=== PATIENT | female | born 1955 | race Caucasian/White ===

== ENCOUNTER 2017-12-22 09:02 | Day surgery (SDC) | payer BC ==
[~2017-12-22 09:02] MED LIST: Lactated Ringers 1,000 ML IV SCH; Midazolam 1 MG/ML 2 ML SDV ONE; Propofol 200 MG/20 ML SDV ONE; Sodium Chloride 0.9% 10 ML Syringe FLUSH PRN
--- NOTE | 2017-12-22 09:48 | PCM.PN ---
- General Info Date of Service: 12/22/17 - Review of Systems Systems Review Comment:: 62-year-old female with history of colon polyps here for colonoscopy. She is medically stable to proceed today. Her recent history and physical is reviewed and there is no significant change noted today. I discussed the proposed colonoscopy with the patient. She agrees to proceed accepting risks. - Patient Data Vitals - Most Recent: Last Vital Signs Temp 98.4 F 12/22/17 09:14 Pulse 104 H 12/22/17 09:14 Resp 20 12/22/17 09:14 BP 140/81 12/22/17 09:14 Pulse Ox 98 12/22/17 09:14 Weight - Most Recent: 99.79 kg Med Orders - Current: Current Medications Lactated Ringer's (Ringers, Lactated) 1,000 mls @ 125 mls/hr IV ASDIRECTED SHIVANI Last Admin: 12/22/17 09:32 Dose: 125 mls/hr Sodium Chloride (Saline Flush) 10 ml FLUSH ASDIRECTED PRN PRN Reason: Keep Vein Open Discontinued Medications Midazolam HCl (Versed 1 Mg/Ml) Confirm Administered Dose 2 mg .ROUTE .STK-MED ONE Stop: 12/22/17 08:34 Propofol (Diprivan 20 Ml) Confirm Administered Dose 200 mg .ROUTE .STK-MED ONE Stop: 12/22/17 08:35 - Problem List Review Problem List Initiated/Reviewed/Updated: Yes - My Orders Last 24 Hours: My Active Orders 12/22/17 09:00 Patient Status [ADT] Routine Peripheral IV Care [RC] . DIRECTED Verify Patient Consent Obtain [RC] ASDIRECTED Lactated Ringers [Ringers, Lactated] 1,000 ml IV ASDIRECTED Sodium Chloride 0.9% [Saline Flush] 10 ml FLUSH ASDIRECTED PRN Peripheral IV Insertion Adult [OM.PC] Routine - Assessment Assessment:: history of colon polyps - Plan Plan:: colonoscopy
[2017-12-22] MEDS ORDERED: Propofol 200 MG/20 ML SDV ONE (09:49)
[2017-12-22] MEDS ORDERED: Midazolam 1 MG/ML 2 ML SDV ONE (09:49)
--- NOTE | 2017-12-22 10:42 | PCM.OPNOTE ---
- General Post-Op/Procedure Note Date of Surgery/Procedure: 12/22/17 Operative Procedure(s): Colonoscopy Findings: normal appearing colon Pre Op Diagnosis: History of colon polyps Post-Op Diagnosis: Normal colon Anesthesia Technique: MAC Primary Surgeon: Crescencio Hagen Pathology: none Output, Urine Amount: 0 EBL in mLs: 0 Complications: None Condition: Good
[2017-12-22 13:08] VITALS: BP 137/66
--- NOTE | 2017-12-22 13:59 | OR ---
Date of Procedure: 12/22/2017 PREOPERATIVE DIAGNOSIS: History of colon polyps. POSTOPERATIVE DIAGNOSIS: Normal colon. OPERATIONS PERFORMED: Colonoscopy. INDICATIONS FOR SURGERY: This 62-year-old female has a history of colon polyps. She comes for a surveillance colonoscopy. FINDINGS: No polyps were seen during today's exam. The patient's colon appears normal. DESCRIPTION OF PROCEDURE: The patient was taken to the operating room. She was given intravenous sedation, and with her in the left lateral decubitus position, digital rectal exam was performed showing no rectal masses. The Olympus colonoscope was inserted into the rectum. Retroflexed examination of the rectal canal was performed. The scope was then carefully advanced under direct visualization through the entire length of the colon until cecum was reached. Cecal acquisition was confirmed by noting the normal internal cecal anatomy including the appendiceal orifice and ileocecal valve. Advancement of the scope to the cecum was somewhat difficult and did require hand pressure and persistent manipulation, but eventually this was able to be safely accomplished. After examining the cecum, the scope was slowly withdrawn sequentially re-examining the colonic segments. Once the entire colon and rectum had been fully examined, the scope was removed and the patient was taken from the operating room in satisfactory condition. ESTIMATED BLOOD LOSS: Zero. COMPLICATIONS: None. PROGNOSIS: Good. HAILEE Hagen MD /[id number] MTDD
== END 2017-12-22 11:45 | disposition home or self-care (01) ==
LOC: LL.SDS 09:02
PROVIDERS: ATTEND Surgery
DX: Z12.11 Encounter for screening for malignant neoplasm of colon (principal); I10 Essential (primary) hypertension; E78.5 Hyperlipidemia, unspecified; E78.00 Pure hypercholesterolemia, unspecified; E66.9 Obesity, unspecified; Z68.36 Body mass index [BMI] 36.0-36.9, adult; G43.009 Migraine without aura, not intractable, without status migrainosus; G47.33 Obstructive sleep apnea (adult) (pediatric); Z99.89 Dependence on other enabling machines and devices; K58.0 Irritable bowel syndrome with diarrhea; J30.1 Allergic rhinitis due to pollen; M85.80 Other specified disorders of bone density and structure, unspecified site; F32.9 Major depressive disorder, single episode, unspecified; Z79.899 Other long term (current) drug therapy; Z88.2 Allergy status to sulfonamides; Z91.048 Other nonmedicinal substance allergy status; Z86.010 Personal history of colon polyps
CPT/HCPCS: J2250; J2704; J7120

== ENCOUNTER 2022-10-21 10:33 | Day surgery (SDC) | payer MEDICARE, BC ==
[~2022-10-21 10:33] MED LIST changes: -Lactated Ringers 1,000 ML IV SCH
[2022-10-21] MEDS: Lactated Ringers 1,000 ML IV SCH (11:19)
[2022-10-21 13:30] VITALS: BP 137/81; PULSE 64
== END 2022-10-21 12:55 | disposition home or self-care (01) ==
LOC: LL.SDS 10:33
PROVIDERS: ATTEND Surgery
DX: D12.3 Benign neoplasm of transverse colon (principal); K58.0 Irritable bowel syndrome with diarrhea; R19.4 Change in bowel habit; J31.0 Chronic rhinitis; Z79.899 Other long term (current) drug therapy; Z79.890 Hormone replacement therapy; Z91.048 Other nonmedicinal substance allergy status; Z88.2 Allergy status to sulfonamides
CPT/HCPCS: J7120